=== PATIENT | female | born 1955 | race Caucasian/White ===

== ENCOUNTER 2021-02-13 11:28 | Emergency (ER) | payer MEDICARE ==
[~2021-02-13] VITALS: Ht 149.9 cm; Wt 55.0 kg
[~2021-02-13 11:28] MED LIST: AMOXICILLIN500 MG PO; AUGMENTIN500TAB PO; CELEXA40 M1 PO; CLARITIN10 M1 PO; MEDDOSEPAK PO
[2021-02-13 14:05] VITALS: BP 166/94
== END 2021-02-13 14:14 | disposition home or self-care (01) ==
LOC: ED 11:28
DX: U07.1 COVID-19 (principal); I10 Essential (primary) hypertension